=== PATIENT | male | born 1990 | race Caucasian/White ===

== ENCOUNTER 2018-06-23 09:35 | Outpatient (CLI) | payer OTHER | END 2018-06-23 09:36 | disposition critical access hospital (66) | LOC: EMS 09:35 | PROVIDERS: ATTEND Surgery | DX: M54.2 Cervicalgia (principal); V47.5XXA Car driver injured in collision with fixed or stationary object in traffic accident, initial encounter; Y92.414 Local residential or business street as the place of occurrence of the external cause | CPT/HCPCS: A0425; A0429 ==

== ENCOUNTER 2018-06-23 09:58 | Emergency (ER) | payer OTHER ==
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
[2018-06-23] MEDS ORDERED: IBUPROFEN 800 MG TABLET PO STA (10:45)
[2018-06-23 11:09] VITALS: BP 129/88
== END 2018-06-23 11:08 | disposition home or self-care (01) ==
LOC: EDUNIT# → ED 09:58
DX: S16.1XXA Strain of muscle, fascia and tendon at neck level, initial encounter (principal); V47.5XXA Car driver injured in collision with fixed or stationary object in traffic accident, initial encounter; F17.200 Nicotine dependence, unspecified, uncomplicated
CPT/HCPCS: 72040; 99283; A9270